=== PATIENT | male | born 1955 | race Caucasian/White ===

== ENCOUNTER 2020-01-11 10:25 | Emergency (ER) | payer MEDICAID, OTHER ==
[~2020-01-11] VITALS: Ht 167.6 cm; Wt 88.0 kg
[~2020-01-11 10:25] MED LIST: AMLO5TAB PO; ASPI81EC97 PO; ATEN100T6 PO; BENA40TA PO; VICES PO
--- NOTE | 2020-01-11 10:26 | NUR ---
1025---Code brain called.
--- NOTE | 2020-01-11 10:26 | NUR ---
1023---Patient transferred to bed 4 via wheelchair by tech. RN evaluating patient at bedside.
--- NOTE | 2020-01-11 10:26 | NUR ---
1024---Dr. Gottlieb is evaluating the patient at bedside.
[2020-01-11 10:27] VITALS: BP 194/114
--- NOTE | 2020-01-11 10:30 | NUR ---
Patient taken to CT scan via gurney by christiano, accompanied by RN.
--- NOTE | 2020-01-11 10:30 | NUR ---
PT BIB [facility] C/O RIGHT SIDED WEAKNESS, SLURRED SPEECH, AND DIZZINESS SINCE 10:05AM THIS MORNING. PER FAMILY, PT SPOKE AND ACTED NORMALLY LAST NIGHT. PT STATES HE WOKE UP FEELING WEIRED THIS MORNING AND DROPPED OFF HIS COFFEE DUE TO HAND WEAKNESS. PT PRESENTS WITH A&OX3, SLURRED SPEECH, SLIGHT RIGHT SIDE FACIAL DROOP, MILD RT SIDED HAND STRENGTH. PT ALSO STATES HE HAS BEEN OFF OF HIS BLOOD PRESSURE MEDS FOR A WHILE. LUNGS CLEAR BL; HR EVEN AND REGULAR; PT DOES NOT PRESENTS WITH FEVER, CP, SOB, OR COUGH AT THIS TIME; PATIENT STATES PAIN OF 0/10 AT THIS TIME; VSS; PATIENT POSITIONED FOR COMFORT; HOB ELEVATED; BEDRAILS UP X2; BED DOWN. ER MD MADE AWARE OF PT STATUS.
--- NOTE | 2020-01-11 10:37 | NUR ---
Patient returned from CT scan. RN reevaluating the patient at bedside.
--- NOTE | 2020-01-11 10:39 | NUR ---
Dr. Gottlieb is reevaluating the patient at bedside.
[2020-01-11] MEDS ORDERED: LABETALOL 100 MG/20 ML VIAL IVP ONE (10:45)
--- NOTE | 2020-01-11 10:53 | NUR ---
XRAY IS AT BEDSIDE.
[2020-01-11 11:04] LABS: BASOPHILS # (AUTO) 0.1 K/uL (0.00-0.22); BASOPHILS % (AUTO) 0.8 % (0.0-2.0); EOSINOPHILS # (AUTO) 0.3 K/uL (0-0.4); EOSINOPHILS % (AUTO) 3.8 % (0.0-4.0); HEMATOCRIT 46.8 % (36-52); LYMPHOCYTES # (AUTO) 1.4 K/uL (2.0-11.5); LYMPHOCYTES % (AUTO) 19.4 % (20.5-51.1); MEAN CORPUSCULAR HEMOGLOBIN 32 pg (27-31); MEAN CORPUSCULAR HGB CONC 34 g/dL (33-37); MEAN CORPUSCULAR VOLUME 93.9 fL (80-94); MONOCYTES # (AUTO) 0.4 K/uL (0.8-1.0); MONOCYTES % (AUTO) 5.4 % (1.7-9.3); NEUTROPHILS # (AUTO) 5.3 K/uL (1.8-7.7); NEUTROPHILS % (AUTO) 70.6 % (42.2-75.2); PLATELET COUNT (AUTO) 160 K/uL (140-450); RED BLOOD CELL COUNT(AUTO) 4.99 MIL/uL (4.20-6.10); RED CELL DISTRIBUTION WIDTH 14.1 % (11.6-13.7); WHITE BLOOD COUNT (AUTO) 7.5 K/uL (4.8-10.8)
--- NOTE | 2020-01-11 11:18 | NUR ---
Patient to be transferred to [facility]. Is being transferred due to STROKE. Receiving facility has accepting physician and available space. ER physician has signed transfer form. Patient or responsible democrat has agreed to transfer and signed form. Patient belongings inventoried and will be sent with patient. Copy of nursing notes, lab reports, EKG, Physicians Orders and X-rays to be sent with patient. Report called to GRETA RIBEIRO at receiving facility. [facility] ambulance service has been called for transfer. ETA is 25 MINS.
[2020-01-11 11:19] LABS: PROTHROMBIN TIME 10.7 secs (10.8-13.4)
[2020-01-11 11:21] LABS: ALBUMIN 3.8 g/dL (3.4-5.0); ANION GAP 15.9 (8-16); CARBON DIOXIDE 23.1 mmol/L (21-32); TOTAL BILIRUBIN 0.9 mg/dL (0.0-1.0)
--- NOTE | 2020-01-11 11:25 | NUR ---
[facility] IS TRANSFERRING PT AT BEDSIDE.
[2020-01-11 11:31] VITALS: BP 169/101
--- NOTE | 2020-01-11 11:31 | NUR ---
[facility] HAS TRANSFERRED PT TO [facility] VIA AMBULANCE.
--- NOTE | 2020-01-11 11:44 | NUR ---
LEFT MESSAGE AT [phone] TO NOTIFY PT'S SHIRT IS LEFT IN [facility] AND CALL US BACK TO COMMUNICATIONS INTERN.
--- NOTE | 2020-01-11 13:04 | NUR ---
FAMILY CALLED BACK AND STATED WE CAN STROW AWAY THE SHIRT.
== END 2020-01-11 11:31 | disposition short-term general hospital (02) ==
LOC: MED 10:25
DX: I63.9 Cerebral infarction, unspecified (principal); R47.81 Slurred speech; G83.21 Monoplegia of upper limb affecting right dominant side; I10 Essential (primary) hypertension; Z90.49 Acquired absence of other specified parts of digestive tract; Z79.899 Other long term (current) drug therapy
CPT/HCPCS: 36415; 70450; 71045; 80053; 82948; 84484; 85025; 85610; 85730; 86886; 86900; 86901; 93005; 96374; 99291; J3490

== ENCOUNTER 2021-03-22 15:16 | Emergency (ER) | payer OTHER ==
[~2021-03-22] VITALS: Ht 167.6 cm; Wt 83.9 kg
[2021-03-22 15:35] VITALS: BP 155/87
[2021-03-22] MEDS ORDERED: ALBU0.0912 IH (17:07)
[2021-03-22 17:13] VITALS: BP 133/94
== END 2021-03-22 17:13 | disposition home or self-care (01) ==
LOC: MED 15:16
DX: J45.901 Unspecified asthma with (acute) exacerbation (principal)
CPT/HCPCS: 71045; 93005; 99283